=== PATIENT | female | born 1960 | race Caucasian/White ===

== ENCOUNTER 2024-02-01 08:31 | Observation (INO) | payer OTHER ==
[~2024-02-01] VITALS: Ht 157.4 cm; Wt 61.2 kg
[2024-02-01 08:45] VITALS: BP 182/102
[2024-02-01] MEDS ORDERED: AIRSUPRA 90-810.7 GM INH (08:49)
[2024-02-01] MEDS ORDERED: ASPIRIN CHEWABL81 MG PO (08:50)
[2024-02-01] MEDS ORDERED: MORPHINE Sulfate 2 MG/ML SYR IV ONE (09:00)
[2024-02-01 09:01] LABS: BASO # 0.1 10*3/uL (0.0-0.1); BASO % 0.9 % (0.0-1.0); EOS # 0.1 10*3/uL (0.0-0.4); EOS % 1.6 % (1.0-4.0); LYMPH # 2.5 10*3/uL (1.3-4.4); LYMPH % 44.5 % (27.0-41.0); MEAN CELL VOLUME 97.6 fl (81.0-99.0); MEAN CORPUSCULAR HGB 30.8 pg (27.0-31.0); MEAN CORPUSCULAR HGB CONC 31.6 g/dl (33.0-37.0); MEAN PLATELET VOLUME 11.1 fl (9.6-12.3); MONO # 0.5 10*3/uL (0.1-1.0); MONO % 9.2 % (3.0-9.0); NEUT # 2.4 10*3/uL (2.3-7.9); NEUT % 43.6 % (47.0-73.0); PLATELET COUNT AUTOMATED 258 10*3/uL (130-400); RED BLOOD COUNT 4.51 10*6/uL (4.10-5.10); RED CELL DISTRI WIDTH 13.4 % (0-14.5); WHITE BLOOD COUNT 5.5 10*3/uL (4.8-10.8)
[2024-02-01] MEDS ORDERED: Labetalol Hydrochloride 20 MG/4 ML SYR IV ONE (09:10)
[2024-02-01 09:13] LABS: BILIRUBIN Negative (Negative); BLOOD Negative (Negative); CLARITY Clear (Clear); COLOR Yellow (Yellow); GLUCOSE Negative (Negative); KETONE Negative (Negative); LEUKO ESTERASE Trace (Negative); NITRITE Negative (Negative); PH 5.5 (4.5-8.0); SPECIFIC GRAVITY <= 1.005 (1.001-1.030); UROBILINOGEN 0.2 E.U./dl (0.0-1.0)
[2024-02-01 09:13] LABS: ACT PARTIAL THROMBO TIME 24.3 SECONDS (20.0-32.1)
[2024-02-01 09:22] LABS: URINE AMPHETAMINES Negative (1000ng/ml); URINE BARBITURATES Negative (200ng/ml); URINE BENZODIAZEPINES Negative (200ng/ml); URINE CANNABINOIDS (THC) Negative (50ng/ml); URINE COCAINE Negative (300ng/ml); URINE METHADONE Negative (300ng/ml); URINE OPIATES Negative (300ng/ml); URINE PHENCYCLIDINE Negative (25ng/ml)
[2024-02-01 09:25] LABS: ALKALINE PHOSPHATASE 104 U/L (46-116); BUN 7 mg/dl (9-23); CHLORIDE 107 mmol/L (98-107); POTASSIUM 3.9 mmol/L (3.4-5.1); TOTAL PROTEIN 7.8 gm/dL (6.0-8.0)
[2024-02-01 09:27] LABS: SGPT/ALT < 7 U/L (5-49)
[2024-02-01 09:30] LABS: BACTERIA 1+
[2024-02-01 09:58] VITALS: BP 178/94
[2024-02-01] MEDS ORDERED: MORPHINE Sulfate 2 MG/ML SYR IM ONE (10:10)
[2024-02-01 11:22] VITALS: BP 161/91
[2024-02-01 12:40] VITALS: BP 146/89
[2024-02-01] MEDS ORDERED: ACETAMINOPHEN 650 MG SUPP R PRN (13:50)
[2024-02-01] MEDS ORDERED: Magnesium Hydroxide 30 ML UDC PO PRN (13:50)
[2024-02-01] MEDS ORDERED: BISACODYL 5 MG TAB PO PRN (13:50)
[2024-02-01] MEDS ORDERED: ACETAMINOPHEN 325 MG TAB PO PRN (13:50)
[2024-02-01] MEDS ORDERED: Ondansetron Hydrochloride 4 MG/2 ML VIAL IV PRN (13:50)
[2024-02-01] MEDS ORDERED: Acetaminophen/Hydrocodone 5 MG/325 MG TABLET PO PRN (13:50)
[2024-02-01] MEDS ORDERED: Metoprolol Tartrate 25 MG TAB PO SCH (14:00)
[2024-02-01] MEDS ORDERED: ATORVASTATIN CALCIUM 40 MG TABLET PO SCH (14:00)
[2024-02-01] MEDS ORDERED: Enoxaparin Sodium 60 MG/0.6 ML SYR SC SCH (14:11)
[2024-02-01] MEDS ORDERED: Doxycycline Hyclate 100 MG in SODIUM CHLORIDE 0.9% 250 ML IV SCH (14:30)
[2024-02-01] MEDS ORDERED: LEVOFLOXACIN 150 ML IV SCH (14:30)
[2024-02-01] MEDS ORDERED: Losartan Potassium 50 MG TAB PO SCH (15:55)
[2024-02-01 16:58] VITALS: BP 120/79
[2024-02-02 06:41] LABS: BASO # 0.1 10*3/uL (0.0-0.1); BASO % 0.9 % (0.0-1.0); EOS # 0.1 10*3/uL (0.0-0.4); EOS % 1.4 % (1.0-4.0); HEMATOCRIT 38.8 % (37.0-47.0); LYMPH # 2.1 10*3/uL (1.3-4.4); LYMPH % 35.8 % (27.0-41.0); MEAN CELL VOLUME 94.6 fl (81.0-99.0); MEAN CORPUSCULAR HGB 31.5 pg (27.0-31.0); MEAN CORPUSCULAR HGB CONC 33.2 g/dl (33.0-37.0); MEAN PLATELET VOLUME 11.2 fl (9.6-12.3); MONO # 0.5 10*3/uL (0.1-1.0); MONO % 8.6 % (3.0-9.0); NEUT # 3.1 10*3/uL (2.3-7.9); NEUT % 53.1 % (47.0-73.0); PLATELET COUNT AUTOMATED 249 10*3/uL (130-400); RED CELL DISTRI WIDTH 13.6 % (0-14.5); WHITE BLOOD COUNT 5.8 10*3/uL (4.8-10.8)
[2024-02-02] MEDS ORDERED: Regadenoson 0.4 MG/5 ML SYR IV ONE ×3 (07:09)
[2024-02-02 07:32] LABS: ALKALINE PHOSPHATASE 99 U/L (46-116); BUN 8 mg/dl (9-23); CHLORIDE 105 mmol/L (98-107); CHOLESTEROL 253 mg/dL (<200); FREE T4 1.26 ng/dl (0.89-1.76); LDL CHOLESTEROL 163 mg/dL (9-159); POTASSIUM 3.9 mmol/L (3.4-5.1); TOTAL PROTEIN 7.5 gm/dL (6.0-8.0); TRIGLYCERIDES 124 mg/dl (<150)
[2024-02-02 07:59] LABS: SGPT/ALT < 7 U/L (5-49)
[2024-02-02 09:24] LABS: VITAMIN D, 25-HYDROXY 26.9 ng/mL (30-100)
[2024-02-02] MEDS ORDERED: Enoxaparin Sodium 40 MG/0.4 ML SYR SC SCH (10:00)
[2024-02-02] MEDS ORDERED: ASPIRIN, CHEWABLE 81 MG TAB PO SCH (10:00)
[2024-02-02] MEDS ORDERED: Metoprolol Tartrate 50 MG TAB PO SCH (10:00)
[2024-02-02] MEDS ORDERED: SODIUM CHLORIDE 0.9% 1,000 ML IV ONE (17:00)
[2024-02-02 22:28] VITALS: BP 123/77
[2024-02-03 05:55] VITALS: BP 147/35
[2024-02-03] MEDS ORDERED: Cholecalciferol 2,000 UNIT TABLET (50 MCG) PO SCH (10:00)
== END 2024-02-03 06:14 | disposition short-term general hospital (02) ==
LOC: ED 08:31 → EDHOLD 12:15
PROVIDERS: Internal Medicine; ADMIT Internal Medicine; ATTEND Internal Medicine
DX: R07.89 Other chest pain (principal); N39.0 Urinary tract infection, site not specified; I16.0 Hypertensive urgency; E83.52 Hypercalcemia; R73.9 Hyperglycemia, unspecified; I10 Essential (primary) hypertension; F41.1 Generalized anxiety disorder; F32.9 Major depressive disorder, single episode, unspecified; J45.909 Unspecified asthma, uncomplicated; M19.90 Unspecified osteoarthritis, unspecified site; R00.0 Tachycardia, unspecified; R94.30 Abnormal result of cardiovascular function study, unspecified; Z79.899 Other long term (current) drug therapy